=== PATIENT | female | born 1945 | race Caucasian/White ===

== ENCOUNTER → 2024-07-31 12:35 | Outpatient (CLI) | payer MEDICARE, SELFPAY ==
--- NOTE | 2024-07-31 12:39 | DI.RAD.S_ITS ---
PROCEDURE: XR DEXA AXIAL SKELETON INDICATIONS: other esteoporosis COMPARISON: None. FINDINGS: Lumbar Spine: Bone mineral density 1 g/cm2, T score -0.4,. Left Femoral Neck: Bone mineral density 0.61 g/cm2, T score -2.2. Left Hip: Bone mineral density 0.76 g/cm2, T score -1.5 Fracture Risk Calculation (when applicable): 10-year fracture risk of a major osteoporotic fracture 29% percent and of a hip fracture 19% percent. (T score greater or equal to -1.0 to: NORMAL) (T score from -1.1 to -2.4: OSTEOPENIA) (T score less than or equal to -2.5: OSTEOPOROSIS) IMPRESSION: Osteopenia with significantly increased fracture risk as described above. Follow-up guidelines as follows: Osteoporosis: Consider a repeat DEXA and Vertebral Fracture Assessment (VFA) exam in 2 years or sooner if medically necessary, to reassess this patient's status. Osteopenia: Consider a repeat DEXA in 2-3 years to reassess this patient's status, or if there is a new clinical indication. Normal: Consider a repeat DEXA in 5 years or sooner, or if there is a new clinical indication. All treatment decisions require clinical judgment and consideration of individual patient factors, including patient preferences, comorbidities, previous drug use, risk factors not captured in the FRAX model (e.g., frailty, falls, vitamin D deficiency, increased bone turnover, interval significant decline in bone density ) and possible under- or over-estimation of fracture risk by FRAX. In addition, the NOF Guide recommends that FDA-approved medical therapies be considered in postmenopausal women and men age >= 50 years with a: * Hip or vertebral (clinical or morphometric) fracture * T-score of <=-2.5 at the spine or hip * Ten-year fracture probability by FRAX of >= 3% for hip fracture or >=20% for major osteoporotic fracture. Dictated by: Rafita Chaparro M.D. on 07/31/2024 at 15:44 Approved by: Rafita Chaparro M.D. on 07/31/2024 at 15:45
== END ==
PROVIDERS: PCP Nurse Practitioner Family; Referring Provider Orthopaedic Surgery; Visit Provider Orthopaedic Surgery
DX: M81.0 Age-related osteoporosis without current pathological fracture (principal); M85.89 Other specified disorders of bone density and structure, multiple sites
CPT/HCPCS: 77080

== ENCOUNTER → 2025-01-29 13:37 | Outpatient (CLI) | payer MEDICARE, SELFPAY ==
--- NOTE | 2025-01-29 13:38 | DI.MRI.S_ITS ---
PROCEDURE: MR SHOULDER RT WO CON INDICATIONS: IMPINGMEMENT OF RT SHOULDER TECHNIQUE: Noncontrast oblique coronal T2 fast spin echo with fat saturation, oblique sagittal T1 spin echo and T2 fast spin echo with fat saturation, axial T1 spin echo and T2 fast spin echo with fat saturation through the shoulder. COMPARISON: [facility] [place], RG, SHOULDER MIN 2VW (RT), 02/23/2024, 10:21. FINDINGS: Quality: Adequate. Tendons: Rotator cuff tendons: Greater than 50 percent thickness articular sided insertional tear of the superior 3rd of the subscapularis tendon. Full-thickness near full width tear of the anterior supraspinatus tendon from the insertion with retraction to the mid humeral head. Less than 50 percent thickness articular sided insertional tearing of infraspinatus tendon. Teres minor tendon is intact. Long head of biceps tendon: Intact. No dislocation. Muscles: No disproportionate fatty degeneration of the rotator cuff musculature. Acromioclavicular joint: Mild degenerative changes.. Glenohumeral joint: Labrum: Diffuse degeneration Cartilage: Multifocal full-thickness cartilage loss. Tiny marginal osteophytes. Fluid: Small effusion. Capsule: No pericapsular inflammation or scarring. Alignment: No dislocation. Bursa: Subacromial/subdeltoid bursa: Distended. Subcoracoid bursa: Distended. Bones: No fracture. IMPRESSION: Full-thickness near full width supraspinatus tendon tear. High-grade partial-thickness subscapularis tendon tear. Intermediate grade partial thickness infraspinatus tendon tear. Glenohumeral and acromioclavicular osteoarthritis. Glenohumeral effusion. Dictated by: William Blackwell M.D. on 01/29/2025 at 15:38 Approved by: William Blackwell M.D. on 01/29/2025 at 16:02
== END ==
LOC: MRI 13:37
PROVIDERS: PCP Nurse Practitioner Family; Referring Provider Orthopaedic Surgery; Visit Provider Orthopaedic Surgery
DX: M75.121 Complete rotator cuff tear or rupture of right shoulder, not specified as traumatic (principal); M75.41 Impingement syndrome of right shoulder; M19.011 Primary osteoarthritis, right shoulder; M25.411 Effusion, right shoulder
CPT/HCPCS: 73221